=== PATIENT | male | born 1980 | race Caucasian/White ===

== ENCOUNTER 2017-06-09 11:25 | Observation (INO) | payer SELFPAY ==
[2017-06-09 11:29] VITALS: BP 138/70; PULSE 94; RESP 16; TEMP 99; O2SAT 99
--- NOTE | 2017-06-09 12:22 | PD ---
HPI Chief Complaint: Pain: Acute or Chronic Time Seen by Provider: 12:19 Travel History International Travel<30 days: No Contact w/Intl Traveler<30days: No Traveled to known affect area: No History of Present Illness HPI This is a 37-year-old male who presents for evaluation of bilateral leg pain. He reports that initially he is initially from [place], travel down here 4 months ago when he reports that he was incarcerated for the past 4 months, released from long term yesterday. He reports that yesterday he walked 20 miles barefoot and he now comes in complaining of bilateral leg and foot pain. Specifically his pain is the worst in the plantar aspect of both feet but also present in the bilateral thigh muscles. Pain is an aching pain which is worse when walking. He denies any myalgias in the upper extremities or the back or the neck. He denies any trauma. He denies any dark colored urine. He also reports a history of peripheral neuropathy which he reports is likely contributing to this pain. He has no other complaints at this time. [facility] Past Medical History Cardiovascular Problems: Yes (HTN) Social History Alcohol Use: Yes Tobacco Use: Yes Substance Use: No Allergies-Medications (Allergen,Severity, Reaction): Coded Allergies: No Known Allergies (Unverified , 06/09/17) Reported Meds & Prescriptions Reported Meds & Active Scripts Active Reported Lisinopril 2.5 Mg Tab 2.5 Mg PO DAILY Gabapentin 800 Mg Tab 800 Mg PO TID Review of Systems Except as stated in HPI: all other systems reviewed are Neg Physical Exam Narrative GENERAL: Well-developed well-nourished male in no acute distress SKIN: Warm and dry. HEAD: Atraumatic. Normocephalic. EYES: Pupils equal and round. No scleral icterus. No injection or drainage. ENT: No nasal bleeding or discharge. Mucous membranes pink and moist. NECK: Trachea midline. No JVD. CARDIOVASCULAR: Regular rate and rhythm. No murmur appreciated. RESPIRATORY: No accessory muscle use. Clear to auscultation. Breath sounds equal bilaterally. GASTROINTESTINAL: Abdomen soft, non-tender, nondistended. Hepatic and splenic margins not palpable. MUSCULOSKELETAL: No obvious deformities. There is generalized tenderness to palpation of the plantar aspect of both feet. There is generalized tenderness to palpation to the bilateral thighs. The compartments of legs are soft. The patient maintains full range of motion of the lower extremities. 2+ dorsalis pedis pulse bilaterally. NEUROLOGICAL: Awake and alert. No obvious cranial nerve deficits. Motor grossly within normal limits. Normal speech. Data Data Last Documented VS Vital Signs Date Time Temp Pulse Resp B/P (MAP) Pulse Ox O2 Delivery O2 Flow Rate FiO2 06/09/17 11:29 99.0 94 16 138/70 (92) 99 Orders Orders Creatine Kinase (Cpk) (06/09/17 12:19) Magnesium (Mg) (06/09/17 12:19) Basic Metabolic Panel (Bmp) (06/09/17 12:19) CKMB (06/09/17 12:40) CKMB% (06/09/17 12:40) Sodium Chlor 0.9% 1000 Ml Inj (Ns 1000 M (06/09/17 13:49) Sodium Chlor 0.9% 1000 Ml Inj (Ns 1000 M (06/09/17 13:49) Patient Transfer (06/09/17 ) Admit Order (Ed Use Only) (06/09/17 14:48) Labs Laboratory Tests Test 06/09/17 12:40 Blood Urea Nitrogen 14 MG/DL Creatinine 1.01 MG/DL Random Glucose 78 MG/DL Calcium Level 9.1 MG/DL Magnesium Level 2.3 MG/DL Sodium Level 134 MEQ/L Potassium Level 3.8 MEQ/L Chloride Level 98 MEQ/L Carbon Dioxide Level 28.2 MEQ/L Anion Gap 8 MEQ/L Estimat Glomerular Filtration Rate 83 ML/MIN Total Creatine Kinase 1886 U/L Creatine Kinase MB 8.5 NG/ML Creatine Kinase MB % 0.5 % [facility] Medical Decision Making Medical Screen Exam Complete: Yes Emergency Medical Condition: Yes Medical Record Reviewed: Yes Differential Diagnosis Muscle soreness from walking versus bilateral stress fractures versus rhabdomyolysis Narrative Course Basic lab work was obtained revealing a total CK of 1886. IV fluids initiated. The patient will be admitted for observation, IV hydration. Diagnosis Primary Impression: Rhabdomyolysis Admitting Information Admitting Physician Requests: Observation Ricardo Feliz Jun 09, 2017 12:22
[2017-06-09] MEDS ORDERED: GABA800T PO (13:07)
[2017-06-09] MEDS ORDERED: LISI2.5T3 PO (13:08)
[2017-06-09 13:32] LABS: BICARBONATE 28.2 MEQ/L (21.0-32.0); CALCIUM 9.1 MG/DL (8.5-10.1); CREATININE 1.01 MG/DL (0.60-1.30); MAGNESIUM 2.3 MG/DL (1.5-2.5)
[2017-06-09] MEDS ORDERED: SODIUM CHLOR 0.9% 1000 ML INJ 1,000 ML IV SCH ×2 (13:49)
[2017-06-09] MEDS ORDERED: SENNOSIDES 8.6 MG TAB PO PRN (15:00)
[2017-06-09] MEDS ORDERED: NALOXONE HCL 0.4 MG/ML AMP IV PUSH PRN (15:00)
[2017-06-09] MEDS ORDERED: LACTULOSE SYRUP 20 GM/30 ML CUP PO PRN (15:00)
[2017-06-09] MEDS ORDERED: SODIUM CHLORIDE 0.9% FLUSH 10 ML FLUSH IV FLUSH PRN (15:00)
[2017-06-09] MEDS ORDERED: BISACODYL 10 MG SUPP RECTAL PRN (15:00)
[2017-06-09] MEDS ORDERED: MAGNESIUM HYDROXIDE SUSP 30 ML CUP PO PRN (15:00)
[2017-06-09] MEDS ORDERED: ACETAMINOPHEN 325 MG TAB PO PRN ×2 (15:00)
[2017-06-09] MEDS ORDERED: ONDANSETRON HCL 4 MG/2 ML VIAL IVP PRN (15:00)
[2017-06-09] MEDS: SODIUM CHLOR 0.9% 1000 ML INJ 1,000 ML IV SCH (16:19)
[2017-06-09 16:34] VITALS: BP 126/81
[2017-06-09] MEDS: GABAPENTIN 400 MG CAP PO SCH (16:52)
--- NOTE | 2017-06-09 16:54 | HHI.HP ---
[facility] Service [facility] Primary Care Physician No Primary Care Physician Admission Diagnosis rhabdomyolysis Diagnoses: Chief Complaint: Bilateral lower extremity pain Travel History International Travel<30 Days: No Contact w/Intl Traveler <30 Da: No Traveled to Known Affected Are: No History of Present Illness This is a 37-year-old male with a history of hypertension and peripheral neuropathy. He presents to the emergency department complaining of bilateral lower extremity pain starting today. States he was released yesterday after being incarcerated for 4 months. He walked for about 20 miles barefoot. It is aching pain worse when he walks. Denies trauma and urinary habit changes. Workup shows elevated CK and recommended hospitalization for IV hydration. All other systems reviewed negative Review of Systems Except as stated in HPI: all other systems reviewed are Neg Past Family Social History Past Medical History as previously mentioned Past Surgical History Appendectomy Reported Medications Lisinopril and gabapentin Allergies: Coded Allergies: No Known Allergies (Unverified , 06/09/17) Family History No CVA or [place] Social History Used to drink a lot causing neuropathy but has cut back now occasionally drinks but has not had alcohol for the past 4 months. [id number] smoker but has not smoked for the past 4 months because he was in shelter. Physical Exam Vital Signs Vital Signs Date Time Temp Pulse Resp B/P (MAP) Pulse Ox O2 Delivery O2 Flow Rate FiO2 06/09/17 16:34 91 18 126/81 (96) 100 06/09/17 11:29 99.0 94 16 138/70 (92) 99 Physical Exam GENERAL: This is a well-nourished, well-developed patient, in no apparent distress. SKIN: No rashes, ecchymoses or lesions. Cool and dry. HEAD: Atraumatic. Normocephalic. No temporal or scalp tenderness. EYES: Pupils equal round and reactive. Extraocular motions intact. No scleral icterus. No injection or drainage. ENT: Nose without bleeding, purulent drainage or septal hematoma. Throat without erythema, tonsillar hypertrophy or exudate. Uvula midline. Airway patent. NECK: Trachea midline. No JVD or lymphadenopathy. Supple, nontender, no meningeal signs. CARDIOVASCULAR: Regular rate and rhythm without murmurs, gallops, or rubs. RESPIRATORY: Clear to auscultation. Breath sounds equal bilaterally. No wheezes , rales, or rhonchi. GASTROINTESTINAL: Abdomen soft, non-tender, nondistended. No guarding. MUSCULOSKELETAL: Extremities without clubbing, cyanosis, or edema. No joint tenderness, effusion, or edema noted. No calf tenderness. Negative Homans sign bilaterally. NEUROLOGICAL: Awake and alert. Cranial nerves II through XII intact. Motor and sensory grossly within normal limits. Five out of 5 muscle strength in all muscle groups. Normal speech. Laboratory Laboratory Tests Test 06/09/17 12:40 Blood Urea Nitrogen 14 Creatinine 1.01 Random Glucose 78 Calcium Level 9.1 Magnesium Level 2.3 Sodium Level 134 Potassium Level 3.8 Chloride Level 98 Carbon Dioxide Level 28.2 Anion Gap 8 Estimat Glomerular Filtration Rate 83 Total Creatine Kinase 1886 Creatine Kinase MB 8.5 Creatine Kinase MB % 0.5 Result Diagram: 06/09/17 1240 Caprini VTE Risk Assessment Caprini VTE Risk Assessment: No/Low Risk (score <= 1) Caprini Risk Assessment Model Point Value = 1 Point Value = 2 Point Value = 3 Point Value = 5 Age 41-60 Minor surgery BMI > 25 kg/m2 Swollen legs Varicose veins or History of unexplained or recurrent spontaneous Oral contraceptives or hormone replacement Sepsis (< 1 month) Serious lung disease, including pneumonia (< 1 month) Abnormal pulmonary function Acute myocardial infarction Congestive heart failure (< 1 month) History of inflammatory bowel disease Medical patient at bed rest Age 61-74 Arthroscopic surgery Major open surgery (> 45 min) Laparoscopic surgery (> 45 min) Malignancy Confined to bed (> 72 hours) Immobilizing plaster cast Central venous access Age >= 75 History of VTE Family history of VTE Factor V Leiden Prothrombin [id number] Lupus anticoagulant Anticardiolipin antibodies Elevated serum homocysteine Heparin-induced thrombocytopenia Other congenital or acquired thrombophilia Stroke (< 1 month) Elective arthroplasty Hip, pelvis, or leg fracture Acute spinal cord injury (< 1 month) Prophylaxis Regimen Total Risk Factor Score Risk Level Prophylaxis Regimen 0-1 Low Early ambulation 2 Moderate Order ONE of the following: *Sequential Compression Device (SCD) *Heparin 5000 units SQ BID 3-4 Higher Order ONE of the following medications: *Heparin 5000 units SQ TID *Enoxaparin/Lovenox 40 mg SQ daily (WT < 150 kg, CrCl > 30 mL/min) *Enoxaparin/Lovenox 30 mg SQ daily (WT < 150 kg, CrCl > 10-29 mL/min) *Enoxaparin/Lovenox 30 mg SQ BID (WT < 150 kg, CrCl > 30 mL/min) AND/OR *Sequential Compression Device (SCD) 5 or more Highest Order ONE of the following medications: *Heparin 5000 units SQ TID (Preferred with Epidurals) *Enoxaparin/Lovenox 40 mg SQ daily (WT < 150 kg, CrCl > 30 mL/min) *Enoxaparin/Lovenox 30 mg SQ daily (WT < 150 kg, CrCl > 10-29 mL/min) *Enoxaparin/Lovenox 30 mg SQ BID (WT < 150 kg, CrCl > 30 mL/min) AND *Sequential Compression Device (SCD) Assessment and Plan Problem List: (1) Rhabdomyolysis ICD Code: M62.82 - Rhabdomyolysis Status: Acute Assessment and Plan This is a 37-year-old male who presents to the emergency department complaining of bilateral lower extremity pain starting the day of admission. States he was released day prior to admission after being incarcerated for 4 months. He walked for about 20 miles barefoot. It is aching pain worse when he walks. Denies trauma and urinary habit changes. Workup shows elevated CK and recommended hospitalization for IV hydration. Rhabdomyolysis. Patient received 2 L fluid bolus in the ED. Continue IV hydration. Repeat CK level in the morning. Symptomatic treatment Mild Hyponatremia. Asymptomatic. Repeat BMP and magnesium in the morning Chronic medical conditions of hypertension and peripheral neuropathy. Stable continue home medications as appropriate Low risk for DVT Discussed Condition With pt Deshawn Mcnamara MD Jun 09, 2017 16:54
[2017-06-09 17:26] VITALS: BP 122/72; PULSE 89; RESP 18; TEMP 98.1; O2SAT 99
[2017-06-09 20:04] VITALS: BP 114/65; PULSE 87; RESP 18; TEMP 97.9; O2SAT 96
[2017-06-09] MEDS: SODIUM CHLORIDE 0.9% FLUSH 10 ML FLUSH IV FLUSH SCH (20:11)
[2017-06-09] MEDS: DOCUSATE SODIUM 50 MG/SENNA 8.6 MG TAB PO SCH (20:11)
[2017-06-09 20:27] VITALS: BP 118/67; PULSE 85; RESP 16; TEMP 98.1; O2SAT 97
[2017-06-10 02:03] VITALS: BP 107/57; PULSE 67; RESP 18; TEMP 98.1; O2SAT 97
[2017-06-10] MEDS: SODIUM CHLOR 0.9% 1000 ML INJ 1,000 ML IV SCH ×3 (02:11→22:25)
[2017-06-10 07:26] LABS: ALBUMIN 3.2 GM/DL (3.4-5.0); AST (GOT) 123 U/L (15-37); BLOOD UREA NITROGEN 13 MG/DL (7-18); CALCIUM 8.2 MG/DL (8.5-10.1); CREATININE 0.82 MG/DL (0.60-1.30); GLOMERULAR FILTRATION RATE 105 ML/MIN (>89); GLUCOSE,RANDOM 105 MG/DL (74-106); MAGNESIUM 2.2 MG/DL (1.5-2.5)
[2017-06-10 07:32] VITALS: BP 116/70; PULSE 78; RESP 18; TEMP 98; O2SAT 98
[2017-06-10 07:37] LABS: ALKALINE PHOSPHATASE 72 U/L (45-117); ALT (GPT) 237 U/L (12-78); CHLORIDE 107 MEQ/L (98-107); SODIUM (NA) 139 MEQ/L (136-145); TOTAL BILIRUBIN ADULT 0.5 MG/DL (0.2-1.0); TOTAL PROTEIN 6.2 GM/DL (6.4-8.2)
[2017-06-10] MEDS: SODIUM CHLORIDE 0.9% FLUSH 10 ML FLUSH IV FLUSH SCH ×2 (09:00→19:51)
[2017-06-10] MEDS ORDERED: LISINOPRIL 5 MG TAB PO SCH (09:00)
[2017-06-10] MEDS: DOCUSATE SODIUM 50 MG/SENNA 8.6 MG TAB PO SCH ×2 (09:29→19:52)
[2017-06-10] MEDS: GABAPENTIN 400 MG CAP PO SCH ×3 (09:30→17:49)
--- NOTE | 2017-06-10 09:38 | HHI.PR ---
Subjective Remarks Follow up rhabdomyolysis. Patient reporting severe pain in his legs, worse in the upper legs. No chest pain, dyspnea, nausea, vomiting, diarrhea, constipation. States that he has a history of Hepatitis C, which has not been treated due to lack of insurance. He also reports drinking 5-6 beers (16 oz. each) 2 days ago. Objective Vitals Vital Signs Date Time Temp Pulse Resp B/P (MAP) Pulse Ox O2 Delivery O2 Flow Rate FiO2 06/10/17 07:32 98.0 78 18 116/70 (85) 98 06/10/17 05:58 21 06/10/17 02:03 98.1 67 18 107/57 (74) 97 06/09/17 20:27 98.1 85 16 118/67 (84) 97 06/09/17 20:04 97.9 87 18 114/65 (81) 96 06/09/17 17:26 98.1 89 18 122/72 (89) 99 06/09/17 16:34 91 18 126/81 (96) 100 06/09/17 11:29 99.0 94 16 138/70 (92) 99 I/O 06/09/17 06/09/17 06/09/17 06/10/17 06/10/17 06/10/17 07:00 15:00 23:00 07:00 15:00 23:00 Intake Total 3000 ml Balance 3000 ml Intake IV Total 3000 ml # Voids 1 2 Result Diagram: 06/10/17 0538 Objective Remarks General: No acute distress. Heart: Regular rate and rhythm. No murmur. Lungs: Clear to auscultation bilaterally. No wheezes, rales, or rhonchi. Breathing is nonlabored. Abdomen: Soft, nontender, nondistended. Extremities: No lower extremity edema. Bilateral upper legs are tender to palpation. Psych: Alert and oriented. Procedures None Urinary Catheter: No Vascular Central Line Catheter: No A/P Problem List: (1) Rhabdomyolysis ICD Code: M62.82 - Rhabdomyolysis Status: Acute (2) Elevated LFTs ICD Code: R79.89 - Other specified abnormal findings of blood chemistry (3) History of hepatitis C ICD Code: Z86.19 - Personal history of other infectious and parasitic diseases Assessment and Plan 1. Rhabdomyolysis: CK improving. Continue IV fluids. Patient still reporting significant pain in both upper legs. 2. Elevated LFTs: Possibly due to rhabdomyolysis. Patient also reports history of hepatitis C and alcohol abuse. Advised patient to follow up as outpatient for further monitoring of LFTs and for treatment of hepatitis C. Advised to avoid alcohol. 3. Hypertension: Continue lisinopril. 4. Neuropathy: Continue gabapentin. Discharge Planning Possible discharge home later today pending further clinical improvement. Graham Gomez MD Jun 10, 2017 09:38
[2017-06-10] MEDS ORDERED: INFLUENZA VIRUS VACCINE (QUADRIVALENT) 0.5 ML SYR IM ONE (10:00)
[2017-06-10] MEDS ORDERED: BENZOCAINE-MENTHOL (SUGAR FREE) 15 MG-3.6 MG LOZENGE BUCCAL PRN (11:00)
[2017-06-10 11:13] VITALS: BP 112/69; PULSE 84; RESP 18; TEMP 98.1; O2SAT 98
[2017-06-10 15:29] VITALS: BP 122/69; PULSE 86; RESP 18; TEMP 98; O2SAT 98
[2017-06-10 19:06] VITALS: BP 137/89; PULSE 87; RESP 16; TEMP 98; O2SAT 98
[2017-06-10] MEDS ORDERED: REME30TA PO (20:33)
[2017-06-10] MEDS ORDERED: MIRTAZAPINE ODT 30 MG TAB PO SCH (21:15)
[2017-06-11 00:51] VITALS: BP 113/51; PULSE 73; RESP 13; TEMP 97.8; O2SAT 98
[2017-06-11 04:54] VITALS: BP 116/71; PULSE 75; RESP 16; TEMP 98; O2SAT 95
[2017-06-11 07:43] LABS: ALBUMIN 3.1 GM/DL (3.4-5.0); ALT (GPT) 228 U/L (12-78); AST (GOT) 123 U/L (15-37); BICARBONATE 28.7 MEQ/L (21.0-32.0); BLOOD UREA NITROGEN 10 MG/DL (7-18); CALCIUM 8.2 MG/DL (8.5-10.1); CHLORIDE 109 MEQ/L (98-107); CREATININE 0.74 MG/DL (0.60-1.30); GLOMERULAR FILTRATION RATE 118 ML/MIN (>89); GLUCOSE,RANDOM 95 MG/DL (74-106); SODIUM (NA) 142 MEQ/L (136-145)
[2017-06-11 07:44] VITALS: BP 122/79; PULSE 77; RESP 18; TEMP 97.8; O2SAT 99
[2017-06-11 07:45] LABS: ALKALINE PHOSPHATASE 63 U/L (45-117); TOTAL BILIRUBIN ADULT 0.3 MG/DL (0.2-1.0); TOTAL PROTEIN 6.2 GM/DL (6.4-8.2)
--- NOTE | 2017-06-11 09:52 | HHI.PR ---
Subjective Remarks Follow up rhabdomyolysis, elevated LFTs. Patient states that he feels better today. Leg pain is improved. No abdominal pain, nausea, vomiting. Objective Vitals Vital Signs Date Time Temp Pulse Resp B/P (MAP) Pulse Ox O2 Delivery O2 Flow Rate FiO2 06/11/17 07:44 97.8 77 18 122/79 (93) 99 06/11/17 04:54 98.0 75 16 116/71 (86) 95 06/11/17 00:51 97.8 73 13 113/51 (71) 98 06/10/17 19:06 98.0 87 16 137/89 (105) 98 06/10/17 15:29 98.0 86 18 122/69 (86) 98 06/10/17 11:13 98.1 84 18 112/69 (83) 98 I/O 06/10/17 06/10/17 06/10/17 06/11/17 06/11/17 06/11/17 07:00 15:00 23:00 07:00 15:00 23:00 Intake Total 3000 ml Balance 3000 ml Intake IV Total 3000 ml # Voids 2 3 Result Diagram: 06/11/17 0631 Objective Remarks General: No acute distress. Heart: Regular rate and rhythm. No murmur. Lungs: Clear to auscultation bilaterally. No wheezes, rales, or rhonchi. Breathing is nonlabored. Abdomen: Soft, nontender, nondistended. Extremities: No lower extremity edema. Bilateral lower extremities are nontender. Psych: Alert and oriented. Procedures None Urinary Catheter: No Vascular Central Line Catheter: No A/P Problem List: (1) Rhabdomyolysis ICD Code: M62.82 - Rhabdomyolysis Status: Acute (2) Elevated LFTs ICD Code: R79.89 - Other specified abnormal findings of blood chemistry (3) History of hepatitis C ICD Code: Z86.19 - Personal history of other infectious and parasitic diseases Assessment and Plan 1. Rhabdomyolysis: CK continues to improve. Leg pain has improved. 2. Elevated LFTs: Possibly due to rhabdomyolysis. Patient also reports history of hepatitis C and alcohol abuse. Advised patient to follow up as outpatient for further monitoring of LFTs and for treatment of hepatitis C. Advised to avoid alcohol. Check liver ultrasound. 3. Hypertension: Continue lisinopril. 4. Neuropathy: Continue gabapentin. Discharge Planning Possible discharge home later today pending liver ultrasound. Graham Gomez MD Jun 11, 2017 09:52
[2017-06-11] MEDS ORDERED: LISI2.5T3 PO (09:54)
[2017-06-11] MEDS ORDERED: REME30TA PO (09:54)
[2017-06-11] MEDS ORDERED: GABA800T PO (09:54)
--- NOTE | 2017-06-11 09:54 | HHI.DCPOC ---
Discharge Care Plan Diagnosis: (1) Rhabdomyolysis (2) History of hepatitis C (3) Elevated LFTs Goals to Promote Your Health * To prevent worsening of your condition and complications * To maintain your health at the optimal level Directions to Meet Your Goals Take your medications as prescribed Follow your dietary instruction Follow activity as directed Keep your appointments as scheduled Take your immunizations and boosters as scheduled If your symptoms worsen call your PCP, if no PCP go to Urgent Care Center or Emergency Room Smoking is Dangerous to Your Health. Avoid second hand smoke Call the 24-hour hour crisis hotline for domestic abuse at Graham Gomez MD Jun 11, 2017 09:54
--- NOTE | 2017-06-11 10:32 | RADRPT ---
EXAM DATE/TIME: 06/11/2017 09:57 [facility] COMPARISON: No previous studies available for comparison. INDICATIONS : Abnormal lab values. MEDICAL HISTORY : Hypertension. Hepatitis C. SURGICAL HISTORY : Appendectomy. Cholecystectomy. ENCOUNTER: Initial ACUITY: 1 day PAIN SCORE: 0/10 LOCATION: Abdomen. MEASUREMENTS: LIVER: 17.4 cm length COMMON DUCT: 5 mm RIGHT KIDNEY: 10.4 x 4.4 x 4.9 cm SPLEEN: 15.0 cm length FINDINGS: LIVER: Normal echotexture without focal lesion or ductal dilatation. COMMON DUCT: No intraluminal mass or stone visualized. GALLBLADDER: Surgically absent PANCREAS: Obscured RIGHT KIDNEY: No hydronephrosis, stone or mass. SPLEEN: Enlarged without focal mass CONCLUSION: Hepatosplenomegaly. No acute focal findings. Napoleon De Leon MD on June 11, 2017 at 10:29 Board Certified Radiologist. This report was verified electronically.
[2017-06-11 11:04] VITALS: BP 130/80; PULSE 79; RESP 18; TEMP 98.1; O2SAT 99
== END 2017-06-11 14:28 | disposition home or self-care (01) ==
LOC: NEPD 11:25 → NEDA 14:48 → NEPGCP 16:31
PROVIDERS: ADMIT Family Medicine; ATTEND Family Medicine
DX: M62.82 Rhabdomyolysis (principal); E87.1 Hypo-osmolality and hyponatremia; R79.89 Other specified abnormal findings of blood chemistry; I10 Essential (primary) hypertension; G62.9 Polyneuropathy, unspecified; B19.20 Unspecified viral hepatitis C without hepatic coma; M79.604 Pain in right leg; M79.605 Pain in left leg; R16.2 Hepatomegaly with splenomegaly, not elsewhere classified; F17.200 Nicotine dependence, unspecified, uncomplicated; Z79.899 Other long term (current) drug therapy; Z23 Encounter for immunization
CPT/HCPCS: 76705; 80048; 80053; 82550; 82552; 83735; 90471; 90686; 96360; 96361; 97161; 99285; G0378; G8987; G8988; G8989; J7030; G0008; Q2038